=== PATIENT | female | born 1990 | race Caucasian/White ===

== ENCOUNTER → 2023-02-11 16:43 | Outpatient (CLI) | payer OTHER, SELFPAY ==
[2023-02-11 17:54] LABS: Add Manual Diff / Slide Review NO; Basophils Absolute Auto 0 /uL (0-100); Basophils Percent Auto 0.5 % (0-2); Eosinophils Absolute Auto 300 /uL (0-450); Eosinophils Percent Auto 2.8 % (2-4); Hematocrit 39.9 % (36-46); Hemoglobin 13.4 g/dL (12.0-16.0); Lymphocytes Absolute Auto 1900 /uL (1100-4500); Lymphocytes Percent Auto 20.6 % (25-40); Mean Corpuscular HGB Conc 33.6 % (30-36); Mean Corpuscular Hemoglobin 28.7 PG (26-34); Mean Corpuscular Volume 85.6 fL (80-100); Monocytes Absolute Auto 500 /uL (0-900); Monocytes Percent Auto 5.7 % (3-14); Neutrophils Absolute Auto 6500 /uL (1500-7000); Neutrophils Percent Auto 70.4 % (50-75); Platelet Count 353 X10^3/uL (150-400); Red Blood Cell Count 4.66 X10^6/uL (4.0-5.2); Red Cell Distribution Width 14.6 % (11.6-14.8); White Blood Cell Count 9.2 X10^3/uL (4.5-11.0)
[2023-02-11 18:26] LABS: Alanine Aminotransferase 31 IU/L (<35); Albumin 3.8 g/dL (3.5-5.0); Albumin Globulin Ratio 1.2 (1.0-2.8); Alkaline Phosphatase 54 U/L (38-126); Aspartate Aminotransferase 28 IU/L (14-36); Bilirubin Total 0.2 mg/dL (0.2-1.3); Blood Urea Nitrogen 8 mg/dL (7-17); Calcium 8.7 mg/dL (8.4-10.2); Carbon Dioxide 25 mmol/L (22-32); Chloride 102 mmol/L (98-107); Estimated Glomerular Filt Rate > 60 mL/min (>60); Globulin 3.2 g/dL (1.7-4.1); Glucose 92 mg/dL (70-100); HEMOLYSIS < 15 (0-50); Potassium 3.8 mmol/L (3.4-5.1); Sodium 137 mmol/L (137-145)
[2023-02-11 18:40] LABS: Vitamin D 25 Hydroxy (D3) < 12.8 ng/mL (30.0-100.0)
== END ==
PROVIDERS: PCP Student in an Organized Health Care Education/Training Program; Referring Provider Student in an Organized Health Care Education/Training Program; Visit Provider Student in an Organized Health Care Education/Training Program
DX: N92.6 Irregular menstruation, unspecified (principal); R53.83 Other fatigue
CPT/HCPCS: 36415; 80053; 82306; 84443; 85025

== ENCOUNTER → 2023-02-15 14:40 | Outpatient (CLI) | payer OTHER, SELFPAY ==
--- NOTE | 2023-02-15 14:41 | DI.US.S_ITS ---
PROCEDURE: US PELVIC COMPLETE INDICATIONS: IRREGULAR PERIODS TECHNIQUE: Real-time scanning was performed of the pelvic organs, with image documentation. Additional endovaginal scanning was necessary due to incomplete visualization of the adnexal and endometrial structures by transabdominal scanning. COMPARISON: None. FINDINGS: Uterus: Uterus is anteverted and normal in size at 8.8 x 5.1 x 6.0 cm. The myometrium is homogeneous. The endometrium measures 1.1 mm combined thickness. There is a left posterior intramural fibroid which measures 1.2 x 0.8 x 1.3 cm, a right anterior intramural fibroid which measures 0.5 x 0.6 x 0.8 cm and a left anterior intramural fibroid which measures 1.1 x 1.0 x 1.2 cm. Ovaries: The right ovary measures 3.9 x 2.6 x 3.3 cm, with a calculated ovarian volume of 17.1 cc. The left ovary measures 3.0 x 2.1 x 1.9 cm, with a calculated ovarian volume of 6.2 cc. The ovaries have a normal sonographic appearance. Less than 12 follicles can be seen in each ovary. No adnexal masses are seen. Other: No pathologic free abdominal or pelvic fluid. IMPRESSION: 1. Fibroid uterus. Otherwise unremarkable pelvic ultrasound. We strive to produce accurate, complete, and clear reports of imaging services. To assist us in improving patient care, this report was composed using standard report templates and voice recognition software. Therefore, it may contain abnormal punctuation, insertions and/or omissions. Occasional wrong-word or sound-alike substitutions may occur. Though we review the report and make efforts to correct it, we do recommend that the report be read carefully in proper context to recognize any text inaccuracies. Dictated by: Stefania England M.D. on 02/16/2023 at 10:16 Approved by: Stefania England M.D. on 02/16/2023 at 10:18
== END ==
PROVIDERS: PCP Student in an Organized Health Care Education/Training Program; Referring Provider Student in an Organized Health Care Education/Training Program; Visit Provider Student in an Organized Health Care Education/Training Program
DX: N92.6 Irregular menstruation, unspecified (principal); D25.1 Intramural leiomyoma of uterus
CPT/HCPCS: 76830; 76856

== ENCOUNTER 2023-06-20 06:35 | Day surgery (SDC) | payer OTHER, SELFPAY ==
[2023-06-16 15:15] VITALS: BMI 39.3
[2023-06-20] VITALS (10 sets, daily range): BP systolic 112–158; BP diastolic 74–103; PULSE 71–108; RESP 10–20; TEMP 36.6–36.8; O2SAT 94–99; BMI 39.3
--- NOTE | 2023-06-20 | PATH_ITS ---
[facility] Accession Number: [id number] No. of containers..01 Tissue . 01 Material submitted: . uterus - UTERUS . 01 Diagnosis: UTERUS, FRAGMENTED HYSTERECTOMY: Proliferative endometrium. Benign endometrial polyp. Leiomyoma. No evidence of malignancy. [facility] 06/24/2023 1056 Local . 01 Electronically signed: . Ijeoma Napoles MD, Pathologist NPI- [id number] . 01 Gross description: . The specimen is received in formalin, labeled with the patient's name, , and uterus, and consists of a fragmented uterus (80 grams, 10.4 x 7.3 x 5.5 cm in aggregate) with no cervix or additional adnexa. The endometrium is youssef and velvety, averaging 0.1 cm thick. The serosa is youssef and wrinkled with no evidence of hemorrhage or adhesion identified. The myometrium is youssef and trabecular with a well-circumscribed, white, whorled nodule measuring 0.6 cm in greatest dimension with no hemorrhage or necrosis identified. . Admitting Officer sections are submitted as follows: A1: Endometrium. A2: Serosa. A3: Nodule. ([id number]) /MRV 06/22/2023 1522 Local . 01 Pathologist provided ICD-10: N84.0, D25.9 . 01 CPT . 530112 Specimen Comment: A courtesy copy of this report has been sent to [phone] Performed at: 01 [facility] [address] [place] [id number] MD Puma Vicente MD Phone: [phone]
[2023-06-20] MEDS: LACTATED RINGERS 1,000 ML 21 ML IV (06:52)
--- NOTE | 2023-06-20 07:13 | PM.PREOP ---
Pre-operative Note Interval Note History & Physical reviewed/Exam performed by Physician: Yes Changes to H&P: No H&P completed within 30 days and has changed as indicated here:: 06/06/23
--- NOTE | 2023-06-20 08:05 | SUR.OPER ---
Lithotomy on padded OR bed. Rulo Pad Positioner under torso. Head on pillow, arms padded and tucked at sides. Legs secured in padded yellow fins stirrups.
[2023-06-20] MEDS: CEFAZOLIN 2 GM/100 ML PREMIX 100 ML IV (09:00)
[2023-06-20] MEDS: BUPIVACAINE 0.5% (PF) 30 ML, EPINEPHrine 0.15 MG INJ (09:52)
[2023-06-20] MEDS: HYDROMORPHONE 1 MG INJ IV (10:42)
--- NOTE | 2023-06-20 10:47 | P.OP_ITS ---
Operative Date/Time/Diagnoses Date of procedure: 06/20/23 Time of procedure: 10:47 Pre-op diagnosis: Dysmenorrhea Menorrhagia Fibroids Post-op diagnosis: same Procedure & Clinicians Procedure: Procedures Operation Date: 06/20/23 07:45 Actual Procedure Side Surgeon p Laparoscopic Supracervical Hysterectomy Cammy Mace MD Indications: 32-year-old with menorrhagia, dysmenorrhea, and a fibroid uterus. Surgeon: Cammy Mace Melt Helper: Saige Roach Anesthesia Type: General and Local Operative Notes Findings: 10 week size anteverted uterus Normal ovaries bilaterally Normal appendix Normal liver and gallbladder Closure Type: primary Specimen(s): uterus Applied: catheter (Removed at the end of the case) Estimated blood loss (mL): 15 Blood products transfused: none Procedure in detail: The patient was taken to the operating room where she was placed in the dorsal supine position. After adequate general endotracheal anesthesia was achieved, she was placed in the dorsal lithotomy position, and prepped and draped in the usual sterile fashion. A time-out was performed. A bivalve speculum was placed into the vagina and the anterior lip of the cervix was grasped with a single- tooth tenaculum. The cervical os was sequentially dilated until the Zumi uterine manipulator could pass easily into the endometrial cavity. The single- tooth tenaculum was removed from the anterior lip of the cervix, and the bivalve speculum was removed from the vagina. Attention was then turned to the abdomen where 6 cc of 0.5% Marcaine with epinephrine were injected in the umbilical fold. A 5 mm incision was made. The Veress needle was placed into the peritoneal cavity, and its placement confirmed by aspiration and drop test. The abdominal cavity was insufflated with 3.4 L of CO2. The Veress needle was removed, and a 5 mm trocar was placed without difficulty. The pelvis and abdomen were examined with findings noted above. Two other 5 mm incisions were made 4 cm lateral to the midline at the level of the umbilicus, after 6 cc of 0.5% Marcaine with epinephrine were injected. Two 5 mm trocars were placed under direct visualization. The right cornua of the uterus was grasped with an atraumatic grasper. Using the power seal, the utero-ovarian vessels were cauterized and cut. The broad ligament and round ligament were cauterized and cut. The bladder flap was created using the power seal with cautery and cut. The uterine arteries on the right side were extensively cauterized with the power seal. All of this was repeated on the patient's left side. The Zumi uterine manipulator was removed from the uterus. A moistened sponge stick was placed into the vagina. The Aparna loop was placed around the uterus and down along the cervix 2 cm above the uterosacral ligaments. The uterus was amputated using the Aparna loop. The posterior edge of the cervix was cauterized with the spatula cautery for hemostasis. The endocervical canal was extensively cauterized with the spatula cautery. Hemostasis was achieved. 6 cc of 0.5% Marcaine with epinephrine were injected above the pubic symphysis. A 12 mm incision was made. A 12 mm trocar was placed under direct visualization. A large endobag was placed through the suprapubic trocar and the uterus was placed into the bag. The trocar was removed and the edges of the bag were brought up through the skin. The fascia was extended bilaterally with the Garcia scissors. The uterus was grasped with a Mark. The Clayton was placed into the bag. The uterus was morcellated in 8 pieces. The endobag and Clayton were removed from the peritoneal cavity. The fascia was reapproximated using 0 Vicryl in a running fashion. The abdomen was re-insufflated with carbon dioxide gas. The pelvis was copiously irrigated. There was no bleeding noted. 20 cc of 0.2% ropivacaine were placed into the pelvis over the pedicles. The instruments were removed from the abdomen. The CO2 was allowed to escape. The suprapubic incision was closed on the subcutaneous layer with 2 simple interrupted sutures with 3-0 Vicryl. All of the incisions were closed with 4-0 Monocryl in a subcuticular fashion. Steri-Strips and Allevyn dressings were placed. The moistened sponge stick was removed from the vagina. Sponge, lap, and instrument counts were correct x2. The patient tolerated the procedure well, and was taken to PACU in stable condition. Complications: none Post-operative Condition: stable Disposition: PACU Plan for aftercare: Home after recovery
[2023-06-20] MEDS: OXYCODONE IR 5 MG TABLET PO (10:57)
[2023-06-20] MEDS: ALBUTEROL 2.5 MG/3 ML NEB (ADULT) INH (11:41)
== END 2023-06-20 12:28 | disposition home or self-care (01) ==
PROVIDERS: PCP Student in an Organized Health Care Education/Training Program; Referring Provider Obstetrics & Gynecology; Visit Provider Obstetrics & Gynecology
PROC: 0UT94ZL Resection of Uterus, Supracervical, Percutaneous Endoscopic Approach (ICD-10-PCS; CPT 58541; principal; 2023-06-20 07:45)
DX: N92.1 Excessive and frequent menstruation with irregular cycle (principal); N94.6 Dysmenorrhea, unspecified; D25.9 Leiomyoma of uterus, unspecified; N84.0 Polyp of corpus uteri
CPT/HCPCS: 58541; J0171; J0690; J1100; J1170; J1200; J1885; J2250; J2405; J2704; J3010; J3490; J7613

== ENCOUNTER → 2023-06-27 12:09 | Outpatient (CLI) | payer OTHER, SELFPAY ==
[2023-06-27 13:38] LABS: Appearance Urine UA CLEAR; Bilirubin Urine UA NEGATIVE (NEGATIVE); Color Urine UA YELLOW; Glucose Urine UA NEGATIVE (Negative); Ketones Urine UA NEGATIVE (NEGATIVE); Leukocyte Esterase Urine UA 2+ (NEGATIVE); Nitrite Urine UA NEGATIVE (Negative); Occult Blood Urine UA TRACE-INTACT (Negative); Protein Urine UA NEGATIVE (Negative); Specific Gravity Urine UA <=1.005 (1.000-1.035); Urobilinogen Urine UA 0.2 E.U./dL (0.2)
[2023-06-27 13:39] LABS: Urine Volume 10mL (spun)
[2023-06-27 13:44] LABS: Bacteria Urine None Seen; Culture Indicated Urine Specimen Cultured; RBC Urine 1-5/HPF (0-5/HPF); Squamous Epithelial Cell Urine 1-5 /HPF (0-5/HPF); WBC Urine 5-10/HPF (0-5/HPF)
== END ==
LOC: LAB 12:10
PROVIDERS: PCP Student in an Organized Health Care Education/Training Program; Referring Provider Obstetrics & Gynecology; Visit Provider Obstetrics & Gynecology
DX: R10.2 Pelvic and perineal pain (principal)
CPT/HCPCS: 81001; 87086

== ENCOUNTER 2023-06-27 12:46 | Emergency (ER) | payer OTHER, SELFPAY ==
[2023-06-27] VITALS (8 sets, daily range): BP systolic 131–163; BP diastolic 83–98; PULSE 83–101; RESP 13–24; TEMP 37.2; O2SAT 96–99; BMI 38.9
--- NOTE | 2023-06-27 13:00 | DI.RAD.S_ITS ---
PROCEDURE: XR CHEST 1V INDICATIONS: chest pain TECHNIQUE: One view of the chest was acquired. COMPARISON: None. FINDINGS: Surgical changes and devices: None. Lungs and pleura: Lungs are clear. No pleural effusions or pneumothorax. Mediastinum: Mediastinal contours appear normal. Heart size is normal. Bones and chest wall: No suspicious bony lesions. Overlying soft tissues appear unremarkable. IMPRESSION: No acute cardiopulmonary abnormality is seen. Dictated by: Stefania England M.D. on 06/27/2023 at 14:01 Approved by: Stefania England M.D. on 06/27/2023 at 14:02
[2023-06-27 13:24] LABS: Add Manual Diff / Slide Review NO; Basophils Absolute Auto 100 /uL (0-100); Basophils Percent Auto 0.7 % (0-2); Eosinophils Absolute Auto 200 /uL (0-450); Eosinophils Percent Auto 1.9 % (2-4); Hematocrit 41.2 % (36-46); Hemoglobin 13.6 g/dL (12.0-16.0); Lymphocytes Absolute Auto 2100 /uL (1100-4500); Lymphocytes Percent Auto 16.7 % (25-40); Mean Corpuscular Hemoglobin 28.6 PG (26-34); Mean Corpuscular Volume 86.5 fL (80-100); Monocytes Absolute Auto 800 /uL (0-900); Monocytes Percent Auto 6.1 % (3-14); Neutrophils Absolute Auto 9300 /uL (1500-7000); Neutrophils Percent Auto 74.6 % (50-75); Platelet Count 406 X10^3/uL (150-400); Red Blood Cell Count 4.77 X10^6/uL (4.0-5.2); Red Cell Distribution Width 15.4 % (11.6-14.8); White Blood Cell Count 12.4 X10^3/uL (4.5-11.0)
[2023-06-27 13:32] LABS: Prothrombin Time 11.7 SECONDS (9.4-12.5)
[2023-06-27 13:34] LABS: PTT Partial Thromboplastin Tim 36 SECONDS (25.1-36.5)
[2023-06-27 13:37] LABS: Alanine Aminotransferase 39 IU/L (<35); Albumin Globulin Ratio 1.1 (1.0-2.8); Alkaline Phosphatase 87 U/L (38-126); Aspartate Aminotransferase 32 IU/L (14-36); BUN Creatinine Ratio 7.2 (6-22); Bilirubin Total 0.7 mg/dL (0.2-1.3); Blood Urea Nitrogen 5 mg/dL (7-17); Carbon Dioxide 25 mmol/L (22-32); Chloride 107 mmol/L (98-107); Creatine Kinase 51 U/L (30-135); Estimated Glomerular Filt Rate > 60 mL/min (>60); Globulin 3.6 g/dL (1.7-4.1); Glucose 90 mg/dL (70-100); HEMOLYSIS < 15 (0-50); Lipase 35 U/L (23-300); Magnesium 2.3 mg/dL (1.6-2.3); Potassium 3.5 mmol/L (3.4-5.1); Sodium 139 mmol/L (137-145); Total Protein 7.6 g/dL (6.3-8.2)
[2023-06-27 13:51] LABS: Troponin I < 0.012 ng/mL (0.01-0.034)
[2023-06-27 14:05] LABS: Influenza A - CEPHEID Flu A NEGATIVE (NEGATIVE); Influenza B - CEPHEID Flu B NEGATIVE (NEGATIVE); Respiratory Syncytial Virus Negative (Negative)
[2023-06-27 14:06] LABS: COVID-19 CEPHEID 4-PLEX PCR Negative (Negative)
--- NOTE | 2023-06-27 15:06 | ED.SOB ---
HPI - SOB/Dyspnea General Chief Complaint: Shortness of Breath/Dyspnea Stated Complaint: post surgerical complication, SOB, blood in mucus Time Seen by Provider: 06/27/23 15:05 Source: patient Mode of arrival: Ambulatory Limitations: no limitations History of Present Illness HPI Narrative: 32-year-old female with recent hysterectomy on 06/20/2023 who developed nasal congestion, hoarseness, cough and chest pressure and congestion on TuesdayJune 21. Patient states no fevers but she is felt some chills. She has had a cough that has had some clear productive sputum with occasional red tinges. She has also had nasal congestion and sinus pressure. She states little bit of shortness of breath. Denies any swelling of extremities. No nausea no vomiting, states bowel movements have been normal and regular since her surgery. Denies any dysuria urgency or frequency stay did have little bit urethral irritation yesterday but states it is better. No vaginal bleeding. No new swelling of extremities. Patient states she has not normally on any daily medications. Had hysterectomy 06/20/2023 and has had remote history of tonsillectomy. Has a allergies to sulfa, oxycodone and rocuronium. Former tobacco user, occasional alcohol, no recreational drugs. Dr. Kuhn is her primary care physician. Dr. Mace is her OBGYN. Related Data Previous Rx's Medication Instructions Recorded clindamycin phosphate 1 % lotion 1 applic topical DAILY #60 mL 02/11/23 tramadol 50 mg tablet 50 mg PO Q6H PRN pain #20 tabs 06/22/23 Allergies Allergy/AdvReac Type Severity Reaction Status Date / Time rocuronium Allergy Intermediate Rash, Verified 06/20/23 13:48 Bronchospasm Sulfa (Sulfonamide Allergy Mild Hives Verified 06/20/23 06:53 Antibiotics) Review of Systems Review of Systems ROS Unobtainable: All systems reviewed & are unremarkable except as noted in HPI and below Patient History Medical History Eczema Allergies Migraines Headache Chicken pox Painful menstrual periods Irregular menstrual cycle Uterine fibroid Cystic acne Surgical History Anesthesia History of surgical removal of ganglion cyst (~02/2018) History of tubal ligation (~12/2018) History of nasal septoplasty (~12/2017) History of tonsillectomy (~08/2006) Social History household members: spouse and children Smoking Status: Former smoker alcohol intake: current Smoking Status: Former smoker alcohol intake frequency: holidays/special occasions only Substance Use Type: does not use Exam Narrative Exam Narrative: GEN: well nourished, well appearing female, alert and oriented x 3, patient appears to be in mild distress. HEENT: Atraumatic, pupils are equal round reactive to light, extraocular movements are intact, patient has hemorrhage on the left eye at the 3 o'clock position, patient states this has been present since postoperative and there was 1 in the right that has resolved. Bilateral nasal congestion, there is no conjunctival pallor. Throat is clear without any exudates, erythema, tonsillar enlargement or uvular deviation, patient is slightly hoarse. HEART: Regular rate and rhythm without murmur, clicks, rubs. LUNGS:Lungs clear to auscultation, no wheezes, rales, crackles, chest moves symmetrically ABD:bowel sounds normal, soft, mild tenderness, no guarding, rebound, rigidity, no masses noted, no hepatosplenomegaly :No CVA tenderness MSCL: Non-tender, no muscle atrophy, muscles strength 5/5 upper and lower extremities, full range of motion, normal gait NEURO:CN 2-12 intact, sensation normal SKIN: No rash, erythema or other skin changes. Initial Vital Signs Initial Vital Signs: Vital Signs Temperature 98.9 F 06/27/23 12:48 Pulse Rate 96 H 06/27/23 12:48 Respiratory Rate 24 06/27/23 12:48 Blood Pressure 163/98 H 06/27/23 12:48 Pulse Oximetry 99 06/27/23 12:48 Oxygen Delivery Method Room Air 06/27/23 12:48 Course Orders Ordered: ED Orders 06/27/23 13:00 XR chest 1V Stat EKG-12 Lead Stat 06/27/23 13:15 Complete Blood Count AUTO DIFF Stat Comprehensive Metabolic Panel Stat Covid-19 + FLU A/B + RSV - PCR Stat Lipase Stat Magnesium Stat PTT Partial Thromboplastin Frank Stat Prothrombin Time INR Stat Troponin & CK Cardiac Panel Stat Vital Signs Vital signs: Vital Signs - 8 hr 06/27/23 12:48 06/27/23 13:13 06/27/23 13:13 Temperature 98.9 F Pulse Rate 96 H 91 H Respiratory Rate 24 21 Blood Pressure 163/98 H 134/83 Pulse Oximetry 99 99 Oxygen Delivery Method Room Air 06/27/23 13:30 06/27/23 13:30 06/27/23 14:00 Temperature Pulse Rate 88 Respiratory Rate 13 Blood Pressure 147/95 H 131/88 Pulse Oximetry 97 Oxygen Delivery Method 06/27/23 14:00 06/27/23 14:30 06/27/23 14:31 Temperature Pulse Rate 90 83 Respiratory Rate 15 15 Blood Pressure 150/89 H Pulse Oximetry 97 96 Oxygen Delivery Method 06/27/23 14:31 06/27/23 15:00 06/27/23 15:00 Temperature Pulse Rate 88 95 H Respiratory Rate 18 18 Blood Pressure 137/87 Pulse Oximetry 98 98 Oxygen Delivery Method Room Air 06/27/23 15:30 06/27/23 15:30 Temperature Pulse Rate 101 H Respiratory Rate 23 Blood Pressure 146/90 H Pulse Oximetry 99 Oxygen Delivery Method MDM - SOB/Dyspnea Lab Data 06/27/23 13:15 06/27/23 13:15 Labs: Lab Results 06/27/23 06/27/23 Range/Units 13:15 13:15 WBC 12.4 H (4.5-11.0) X10^3/uL RBC 4.77 (4.0-5.2) X10^6/uL Hgb 13.6 (12.0-16.0) g/dL Hct 41.2 (36-46) % MCV 86.5 (80-100) fL MCH 28.6 (26-34) PG MCHC 33.0 (30-36) % RDW 15.4 H (11.6-14.8) % Plt Count 406 H (150-400) X10^3/uL Neut % (Auto) 74.6 (50-75) % Lymph % (Auto) 16.7 L (25-40) % [place] % (Auto) 6.1 (3-14) % Eos % (Auto) 1.9 L (2-4) % Baso % (Auto) 0.7 (0-2) % Neut # (Auto) 9300 H (0747-2662) /uL Lymph # (Auto) 2100 (3142-0220) /uL [place] # (Auto) 800 (0-900) /uL Eos # (Auto) 200 (0-450) /uL Baso # (Auto) 100 (0-100) /uL PT 11.7 (9.4-12.5) SECONDS INR 1.0 (0.9-1.3) APTT 36 (25.1-36.5) SECONDS Sodium 139 (137-145) mmol/L Potassium 3.5 (3.4-5.1) mmol/L Chloride 107 (98-107) mmol/L Carbon Dioxide 25 (22-32) mmol/L BUN 5 L (7-17) mg/dL Creatinine 0.69 (0.52-1.04) mg/dL Estimated GFR > 60 (>60) mL/min BUN/Creatinine Ratio 7.2 (6-22) Glucose 90 (70-100) mg/dL Calcium 9.0 (8.4-10.2) mg/dL Magnesium 2.3 (1.6-2.3) mg/dL Total Bilirubin 0.7 (0.2-1.3) mg/dL AST 32 (14-36) IU/L ALT 39 H (<35) IU/L Alkaline Phosphatase 87 (38-126) U/L Total Creatine Kinase 51 (30-135) U/L Troponin I < 0.012 (0.01-0.034) ng/mL Total Protein 7.6 (6.3-8.2) g/dL Albumin 4.0 (3.5-5.0) g/dL Globulin 3.6 (1.7-4.1) g/dL Albumin/Globulin Ratio 1.1 (1.0-2.8) Lipase 35 (23-300) U/L SARS-CoV-2 (PCR) Cancelled Negative Influenza A (RT-PCR) Flu a negative (NEGATIVE) Influenza B (RT-PCR) Flu b negative (NEGATIVE) RSV (PCR) Negative (Negative) Imaging Data Chest x-ray: Radiologist's Impression: [address] [address] XRay Report Signed Patient: Renae Chung MR#: [id number] : 1990 Acct:[id number] Age/Sex: 32 / F Date of Service: 06/27/23 Loc: ED Accession Number: [id number] Procedure: XR chest 1V Ordering Provider: Key Rolle D.O. PROCEDURE: XR CHEST 1V INDICATIONS: chest pain TECHNIQUE: One view of the chest was acquired. COMPARISON: None. FINDINGS: Surgical changes and devices: None. Lungs and pleura: Lungs are clear. No pleural effusions or pneumothorax. Mediastinum: Mediastinal contours appear normal. Heart size is normal. Bones and chest wall: No suspicious bony lesions. Overlying soft tissues appear unremarkable. IMPRESSION: No acute cardiopulmonary abnormality is seen. Dictated by: Stefania England M.D. on 06/27/2023 at 14:01 Approved by: Stefania England M.D. on 06/27/2023 at 14:02 ECG Data Attestation: I personally reviewed and interpreted this ECG as follows: Prior ECG tracings: not available for review Interpretation: Sinus rhythm with sinus arrhythmia rate of 96 VT 132 QRS 80 QTC 485. No acute ST elevation or depression noted. No priors for comparison. MDM Narrative Medical decision making narrative: 32-year-old female with upper respiratory symptoms as well as some chest congestion with clear productive sputum with the occasional red tinges. Patient exam seems most consistent with likely bronchitis or viral upper respiratory infection, she did recently have surgery in the last 7 days. Heart rate has been in the 90s, no hypoxia, no hypotension or fever. No tachypnea or difficulty with breathing otherwise. Discussed with patient her workup today Shows a white count of 12.4, hemoglobin of 13 with platelets of 4 0 6- coags, creatinine 0.69, BUN of 5 with electrolytes of 139 potassium 3 5 chloride of 107 and CO2 of 25 with a glucose of 90, troponins negative, LFTs are negative, chest x-ray is negative for pneumonia or acute changes consistent with the infection or structural changes. COVID/influenza/RSV swab is also negative. EKG shows sinus rhythm without any acute ST changes no S1 Q 3 T3 appreciated of the low voltage in lead 3. No priors for him. Discussed with patient exam is most consistent with viral infection, did discuss that she higher risk for blood clots, D-dimer would likely not be helpful as will likely be positive in this individual she is higher risk with recent surgery. Discussed obtaining CT angio of the chest to rule out PE but after discussion patient feels comfortable deferring. Discussed return precautions if she is having any persistent or increasing amounts of bleeding. Worsening symptoms or other new changes. Discharge Plan Departure Patient Disposition: Home Clinical Impression: Upper respiratory infection Activity Restrictions/Additional Instructions: Please follow up with your physician for recheck as needed. I will be continued to feel improved. Has a very small possibility of blood clots, your exam today seems most consistent with upper respiratory infection viral infection and lungs. Your chest x-ray does not show pneumonia changes labs overall are reassuring you do have a mild white count slightly elevated platelets. Please return for fevers, new or worsening chest pain or shortness of breath, increasing amounts of blood when you cough, lightheadedness or passing out, new swelling in her extremities or other new or concerning changes. Prescriptions: No Action clindamycin phosphate 1 % lotion 1 applic topical DAILY Qty: 60 1RF tramadol 50 mg tablet 50 mg PO Q6H PRN (Reason: pain) Qty: 20 0RF Referrals: Margarita Kuhn MD [Primary Care Provider] - Stand Alone Forms: Patient Portal/API
== END 2023-06-27 15:48 | disposition home or self-care (01) ==
PROVIDERS: Emergency Provider Emergency Medicine; PCP Student in an Organized Health Care Education/Training Program
DX: J06.9 Acute upper respiratory infection, unspecified (principal); I49.9 Cardiac arrhythmia, unspecified; R10.2 Pelvic and perineal pain; Z87.891 Personal history of nicotine dependence
CPT/HCPCS: 0241U; 36415; 71045; 80053; 81001; 82550; 83690; 83735; 84484; 85025; 85610; 85730; 87086; 93005; 99283; 99284

== ENCOUNTER → 2024-02-16 07:05 | Outpatient (CLI) | payer OTHER, SELFPAY ==
[2024-02-16 08:41] LABS: Hemoglobin A1C% w Est Avg Glu 5.3 % (4.0-6.0)
[2024-02-16 08:53] LABS: Alanine Aminotransferase 31 IU/L (<35); Albumin Globulin Ratio 1.5 (1.0-2.8); Alkaline Phosphatase 61 U/L (38-126); Aspartate Aminotransferase 29 IU/L (14-36); Bilirubin Total 0.9 mg/dL (0.2-1.3); Blood Urea Nitrogen 10 mg/dL (7-17); Calcium 9.1 mg/dL (8.4-10.2); Carbon Dioxide 23 mmol/L (22-32); Chloride 105 mmol/L (98-107); Cholesterol 188 mg/dL (140-199); Estimated Glomerular Filt Rate > 60 mL/min (>60); Globulin 2.6 g/dL (1.7-4.1); Glucose 86 mg/dL (70-100); HDL Cholesterol 24 mg/dL (40-60); HEMOLYSIS < 15 (0-50); LDL Cholesterol Calculated 128 mg/dL (<100); Potassium 4.4 mmol/L (3.4-5.1); Sodium 136 mmol/L (137-145); Total Protein 6.6 g/dL (6.3-8.2); Triglycerides 180 mg/dL (35-150)
[2024-02-16 09:12] LABS: TSH w/ Reflex to FT4 2.81 uIU/mL (0.47-4.68)
== END ==
PROVIDERS: PCP Student in an Organized Health Care Education/Training Program; Referring Provider Student in an Organized Health Care Education/Training Program; Visit Provider Student in an Organized Health Care Education/Training Program
DX: E66.812 Obesity, class 2 (principal); Z68.35 Body mass index [BMI] 35.0-35.9, adult; K21.9 Gastro-esophageal reflux disease without esophagitis
CPT/HCPCS: 36415; 80053; 80061; 83036; 84443

== ENCOUNTER → 2025-03-15 08:51 | Outpatient (CLI) | payer OTHER, SELFPAY ==
[2025-03-15 10:07] LABS: Add Manual Diff / Slide Review NO; Hematocrit 44.0 % (36-46); Hemoglobin 14.9 g/dL (12.0-16.0); Lymphocytes Absolute Auto 1500 /uL (1100-4500); Mean Corpuscular HGB Conc 33.8 % (30-36); Mean Corpuscular Hemoglobin 30.1 PG (26-34); Mean Corpuscular Volume 88.9 fL (80-100); Platelet Count 356 X10^3/uL (150-400)
[2025-03-15 10:50] LABS: Alanine Aminotransferase 37 IU/L (<35); Albumin 4.0 g/dL (3.5-5.0); Albumin Globulin Ratio 1.5 (1.0-2.8); Alkaline Phosphatase 52 U/L (38-126); Blood Urea Nitrogen 14 mg/dL (7-17); Calcium 8.9 mg/dL (8.4-10.2); Carbon Dioxide 27 mmol/L (22-32); Chloride 103 mmol/L (98-107); Estimated Glomerular Filt Rate > 60 mL/min (>60); Globulin 2.6 g/dL (1.7-4.1); Glucose 91 mg/dL (70-99); HEMOLYSIS < 15 (0-50); Hemoglobin A1C% w Est Avg Glu 5.0 % (4.0-6.0); Potassium 4.3 mmol/L (3.4-5.1); Sodium 138 mmol/L (137-145); Total Protein 6.6 g/dL (6.3-8.2)
[2025-03-15 10:55] LABS: HEMOLYSIS < 15 (0-50); Iron 116 ug/dL (37-170)
[2025-03-15 11:05] LABS: Percent Iron Saturation 43 % (15-50); Total Iron Binding Capacity 268 ug/dL (265-497); Transferrin 223 mg/dL (206-381)
[2025-03-15 11:18] LABS: Thyroid Stimulating Hormone 2.21 uIU/mL (0.47-4.68)
[2025-03-15 11:20] LABS: Ferritin 40 ng/mL (6-137)
== END ==
PROVIDERS: PCP Student in an Organized Health Care Education/Training Program; Referring Provider Student in an Organized Health Care Education/Training Program; Visit Provider Student in an Organized Health Care Education/Training Program
DX: R68.89 Other general symptoms and signs (principal)
CPT/HCPCS: 36415; 80053; 82728; 83036; 83540; 83550; 84443; 85025